=== PATIENT | male | born 1965 | race Caucasian/White ===

== ENCOUNTER 2017-10-20 10:04 | Day surgery (SDC) | payer OTHER ==
[~2017-10-20 10:04] MED LIST: GLYCOPYRROLATE 0.4 MG INJ; NEOSTIGMINE 3 MG/3 ML SYRINGE
[2017-10-20] MEDS ORDERED: BUPIVACAINE 0.25% (MPF) 30 ML INJ (11:20)
[2017-10-20] MEDS ORDERED: POLYMYXIN/BACITRACIN 1L IRRIG (11:38)
[2017-10-20] MEDS ORDERED: GLYCOPYRROLATE 0.4 MG INJ ×3 (11:48→13:20)
[2017-10-20] MEDS ORDERED: NEOSTIGMINE 3 MG/3 ML SYRINGE ×2 (11:48→13:20)
[2017-10-20] MEDS ORDERED: SUCCINYLCHOLINE CHLORIDE 100 MG/5 ML SYG IV (11:48)
[2017-10-20] MEDS ORDERED: LIDOCAINE 2% (SDV) 5 ML INJ (11:48)
[2017-10-20] MEDS ORDERED: ROCURONIUM 50 MG INJ ×2 (11:48→13:20)
[2017-10-20] MEDS ORDERED: PROPOFOL 20 ML (11:48)
[2017-10-20] MEDS ORDERED: MEPERIDINE 100 MG INJ (11:48)
[2017-10-20] MEDS ORDERED: CEFAZOLIN 2 GM/50 ML (PMX) 50 ML IVPB (12:30)
[2017-10-20] MEDS ORDERED: LACTATED RINGER'S 1,000 ML IV* (12:30)
[2017-10-20] MEDS: BUPIVACAINE 0.25%/EPI (SDV) 30 ML INJ (12:33)
[2017-10-20] MEDS: THROMBIN 5000 UNIT VIAL (12:33)
[2017-10-20] MEDS: POLYMYXIN/BACITRACIN 1L IRRIG (12:33)
[2017-10-20] MEDS ORDERED: CEFAZOLIN 1 GM INJ ×2 (13:20)
[2017-10-20] MEDS ORDERED: DIPHENHYDRAMINE 50 MG INJ (14:59)
[2017-10-20] MEDS ORDERED: LABETALOL HCL 20MG INJ IV (15:00)
[2017-10-20] MEDS ORDERED: NACL 0.9% 3 ML SYG IV (15:00)
[2017-10-20] MEDS ORDERED: METOCLOPRAMIDE 10 MG INJ IV (15:00)
[2017-10-20] MEDS ORDERED: HYDROmorphONE 0.5 MG/0.5 ML SYG IV (15:00)
[2017-10-20] MEDS ORDERED: OXYCODONE/ACETAMINOPHEN (5/325) TAB PO ×2 (15:00)
[2017-10-20] MEDS ORDERED: HYDROCODONE/APAP (5/325) TAB PO ×2 (15:00)
[2017-10-20] MEDS ORDERED: MEPERIDINE 25 MG INJ IV (15:00)
[2017-10-20] MEDS ORDERED: PROCHLORPERAZINE 10 MG TAB PO (15:00)
[2017-10-20] MEDS ORDERED: MIDAZOLAM 1 MG/ML 2 ML INJ IV (15:00)
[2017-10-20] MEDS ORDERED: FENTAnyl 50 MCG/ML VIAL IV ×3 (15:00)
[2017-10-20] MEDS ORDERED: HYDROmorphONE 1 MG/5 ML IV SYRINGE IV ×2 (15:00)
[2017-10-20] MEDS ORDERED: ACETAMINOPHEN 325 MG TAB PO (15:00)
[2017-10-20] MEDS ORDERED: ONDANSETRON 4 MG INJ IV ×2 (15:00)
[2017-10-20] MEDS ORDERED: NALOXONE (0.4 MG/ML) INJ IV (15:00)
[2017-10-20] MEDS ORDERED: hydrALAzine 20 MG INJ IV (15:00)
[2017-10-20] MEDS ORDERED: EPHEDrine SULFATE 50 MG/5 ML SYG IV (15:00)
[2017-10-20] MEDS: DIPHENHYDRAMINE 50 MG INJ IV (15:04)
[2017-10-20] MEDS: HYDROmorphONE 1 MG/5 ML IV SYRINGE IV ×2 (15:46→16:24)
== END 2017-10-20 17:37 | disposition home or self-care (01) ==
LOC: SDS 10:04
DX: M51.17 Intervertebral disc disorders with radiculopathy, lumbosacral region (principal); I10 Essential (primary) hypertension
CPT/HCPCS: 63030; 72100